=== PATIENT | female | born 1975 | race Caucasian/White ===

== ENCOUNTER → 2021-04-29 | Outpatient (CLI) | payer OTHER ==
[~2021-04-29] MED LIST: HYDROXYZINE HCL25 MG PO
== END ==
LOC: KOH-I 15:59
DX: M25.572 Pain in left ankle and joints of left foot (principal); R20.2 Paresthesia of skin; S30.0XXA Contusion of lower back and pelvis, initial encounter; W13.0XXA Fall from, out of or through balcony, initial encounter; M47.816 Spondylosis without myelopathy or radiculopathy, lumbar region
CPT/HCPCS: 72100; 73610; 73630

== ENCOUNTER 2021-04-30 21:27 | Emergency (ER) | payer OTHER ==
[2021-04-30 22:28] LABS: HEMOGLOBIN 12.6 gm/dl (12.3-15.3); RED BLOOD COUNT 4.83 M/UL (4.00-5.10); WHITE BLOOD COUNT 7.5 K/UL (4.5-11.0)
[2021-04-30 22:50] LABS: BUN/CREATININE RATIO 14 (0-10)
[2021-04-30] MEDS ORDERED: HYDROXYZINE HCL25 MG PO (23:39)
== END 2021-04-30 23:59 | disposition home or self-care (01) ==
LOC: ER1 21:27
PROVIDERS: Internal Medicine
DX: F41.9 Anxiety disorder, unspecified (principal)
CPT/HCPCS: 70450; 71046; 80053; 81001; 84484; 84703; 85025; 93005; 96374; 99284; J2060

== ENCOUNTER → 2022-02-14 | Outpatient (CLI) | payer OTHER ==
[~2022-02-14] VITALS: Ht 172.7 cm; Wt 81.6 kg
[~2022-02-14] MED LIST changes: +IMODIUM CAP 2 MG2 MG PO; +K-TAB ER20 MEQ PO; +ONDANSETRON ODT4 MG SL
[2022-02-14 18:38] LABS: BUN/CREATININE RATIO 15 (0-10)
== END ==
LOC: OPSV 12:19
PROVIDERS: Internal Medicine
DX: Z53.9 Procedure and treatment not carried out, unspecified reason (principal)
CPT/HCPCS: 80048; 96360; 96361; J2405; J3480; J7030

== ENCOUNTER → 2022-02-21 | Outpatient (CLI) | payer OTHER ==
[2022-02-21 18:30] LABS: ADENOVIRUS F 40/41 Not Detected (Negative); ASTROVIRUS Not Detected (Negative); CAMPYLOBACTER Not Detected (Negative); E.COLI 0157 Not Detected (Negative); ENTAMOEBA HISTOLYTICA Not Detected (Negative); ENTEROAGGREGATIVE E.COLI (EAEC Not Detected (Negative); ENTEROPATHOGENIC E.COLI (EPEC) Not Detected (Negative); ENTEROTOXIGENIC E.COLI (ETEC) Not Detected (Negative); GIARDIA LAMBLIA Not Detected (Negative); NOROVIRUS GI/GII Not Detected (Negative); PLESIOMONAS SHIGELLOIDES Not Detected (Negative); ROTOVIRUS A Not Detected (Negative); SALMONELLA Not Detected (Negative); SAPOVIRUS Not Detected (Negative); SHIG/ENTEROINVAS.ECOLI (EIEC) Not Detected (Negative); SHIGA-LIK TOX.PRO.E.COLI (STEC Not Detected (Negative); VIBRIO Not Detected (Negative); VIBRIO CHOLERAE Not Detected (Negative); YERSINIA ENTEROCOLITICA Not Detected (Negative)
[2022-02-22 09:08] LABS: CLOSTRIDIUM DIFFICILE TOX A/B Not Detected (Negative)
[2022-02-22 09:09] LABS: CRYPTOSPORIDIUM DETECTED (Negative)
== END ==
LOC: LAB 17:37
PROVIDERS: Physician Assistant
DX: A07.2 Cryptosporidiosis (principal); A04.4 Other intestinal Escherichia coli infections; R11.0 Nausea
CPT/HCPCS: 87507